=== PATIENT | female | born 1935 | race Caucasian/White ===

== ENCOUNTER → 2016-12-21 | Outpatient (CLI) | payer MEDICARE ==
[~2016-12-21] MED LIST: APRESOLINE10 MG PO; ATENOLOL25 MG; ATENOLOL25 MG PO; BENADRYL ALLERG25 M5 PO; CEFUROXIME AXE250 MG PO; CIPRO500 MG PO; DILTIAZEM 24HR120 MG PO; DULERA100 INH; DUONEB 3 MG/3 ML3 M1 NEB; HYDRALAZINE10 MG PO; LOSARTAN POTASS50 M1 PO; OYSTER SHELL 51 EACH PO; PREDNISONE5 MG PO; PRILOSEC40 M1 PO; PULMICORT RESP0.5 M1 INH; SERTRALINE HYDR25 MG PO; Synthroid,Lev125 MCG PO; TYLENOL 8 HOUR650 MG PO; VITAMIN B COMPL; XANAX0.25 MG PO
[2016-12-21 08:44] LABS: BASO # 0.1 10*3/uL (0.0-0.1); BASO % 1.1 % (0.0-1.0); EOS # 0.6 10*3/uL (0.0-0.4); EOS % 7.3 % (1.0-4.0); HEMATOCRIT 42.2 % (37.0-47.0); HEMOGLOBIN 13.4 g/dl (12.0-16.0); LYMPH # 1.8 10*3/uL (1.3-4.4); LYMPH % 21.9 % (27.0-41.0); MEAN CELL VOLUME 95.9 fl (81.0-99.0); MEAN CORPUSCULAR HGB 30.5 pg (27.0-31.0); MEAN CORPUSCULAR HGB CONC 31.8 g/dl (33.0-37.0); MEAN PLATELET VOLUME 9.9 fl (9.6-12.3); MONO # 0.8 10*3/uL (0.1-1.0); MONO % 9.6 % (3.0-9.0); NEUT # 4.9 10*3/uL (2.3-7.9); NEUT % 59.6 % (47.0-73.0); PLATELET COUNT AUTOMATED 241 10*3/uL (130-400); RED CELL DISTRI WIDTH 14.2 % (0-14.5); WHITE BLOOD COUNT 8.2 10*3/uL (4.8-10.8)
[2016-12-21 09:15] LABS: ALBUMIN 3.2 gm/dl (3.1-4.5); BILIRUBIN, TOTAL 0.4 mg/dl (0.2-1.0); FREE T4 1.67 ng/dl (0.76-1.46); POTASSIUM 4.6 mmol/L (3.5-5.1); TOTAL PROTEIN 7.8 gm/dL (6.4-8.2)
[2016-12-21 09:21] LABS: THYROID STIM HORMONE (HS) 0.016 uIU/ml (0.358-4.75)
[2016-12-21 10:28] LABS: VITAMIN D, 25-HYDROXY 28.4 ng/mL (30-100)
[2016-12-21 10:29] LABS: FOLIC ACID 22.78 ng/mL (>5.38)
== END | disposition home or self-care (01) ==
LOC: LAB 08:19
PROVIDERS: Internal Medicine
DX: Z13.21 Encounter for screening for nutritional disorder (principal); Z13.1 Encounter for screening for diabetes mellitus; Z13.220 Encounter for screening for lipoid disorders; R53.81 Other malaise; E55.9 Vitamin D deficiency, unspecified; Z79.899 Other long term (current) drug therapy

== ENCOUNTER → 2017-02-22 | Outpatient (CLI) | payer MEDICARE ==
[2017-02-22 11:06] LABS: BASO # 0.1 10*3/uL (0.0-0.1); EOS # 0.5 10*3/uL (0.0-0.4); EOS % 6.8 % (1.0-4.0); HEMATOCRIT 42.1 % (37.0-47.0); HEMOGLOBIN 13.3 g/dl (12.0-16.0); LYMPH # 1.6 10*3/uL (1.3-4.4); LYMPH % 20.3 % (27.0-41.0); MEAN CELL VOLUME 96.6 fl (81.0-99.0); MEAN CORPUSCULAR HGB 30.5 pg (27.0-31.0); MEAN CORPUSCULAR HGB CONC 31.6 g/dl (33.0-37.0); MEAN PLATELET VOLUME 10.7 fl (9.6-12.3); MONO # 0.8 10*3/uL (0.1-1.0); NEUT # 4.9 10*3/uL (2.3-7.9); NEUT % 61.3 % (47.0-73.0); PLATELET COUNT AUTOMATED 225 10*3/uL (130-400); RED BLOOD COUNT 4.36 10*6/uL (4.10-5.10)
[2017-02-22 11:38] LABS: ALBUMIN 3.3 gm/dl (3.1-4.5); CREATININE 1.87 mg/dL (0.55-1.02); POTASSIUM 5.4 mmol/L (3.5-5.1); THYROXINE (T4) TOTAL 14.3 ug/dl (4.8-13.9); TOTAL PROTEIN 8.1 gm/dL (6.4-8.2)
[2017-02-22 11:43] LABS: THYROID STIM HORMONE (HS) 0.016 uIU/ml (0.358-4.75)
== END | disposition home or self-care (01) ==
LOC: LAB 10:07
PROVIDERS: Internal Medicine
DX: I10 Essential (primary) hypertension (principal)

== ENCOUNTER → 2017-03-04 | Outpatient (CLI) | payer MEDICARE | END | disposition home or self-care (01) | LOC: MAMMO 10:20 | DX: Z12.31 Encounter for screening mammogram for malignant neoplasm of breast (principal); R42 Dizziness and giddiness; R06.02 Shortness of breath; I65.23 Occlusion and stenosis of bilateral carotid arteries; I08.1 Rheumatic disorders of both mitral and tricuspid valves; I27.2 Other secondary pulmonary hypertension ==

== ENCOUNTER → 2017-04-26 | Outpatient (CLI) | payer MEDICARE | END | disposition home or self-care (01) | LOC: RAD 11:05 | DX: J84.10 Pulmonary fibrosis, unspecified (principal); K44.9 Diaphragmatic hernia without obstruction or gangrene; J45.909 Unspecified asthma, uncomplicated ==

== ENCOUNTER 2017-09-09 11:47 | Inpatient (IN) | payer MEDICARE ==
[~2017-09-09] VITALS: Ht 162.5 cm; Wt 85.5 kg
--- NOTE | ~2017-09-09 | WRIGHTHP ---
[place], [place] PATIENT HISTORY AND PHYSICAL EXAM NAME: ERASMO ALBA [facility] #: [id number] UNIT #: [id number] ROOM: 516 DOCTOR: ECHO ENCINAS MD BIRTHDATE: [birth year] DOS: 09/09/2017 IDENTIFICATION: This is very well known to us. She came into the office with complaints of severe neck pain. Pain was not under control with conventional pain medications and she seemed to have a hard time walking. She was quite tearful and upset. She complains also of headaches in the occipital area. She denies having any nausea, any emesis, any dizziness or lightheadedness. PAST MEDICAL HISTORY: Significant for: 1. Pulmonary fibrosis. 2. Benign hypertension. 3. Generalized anxiety disorder. 4. Hypothyroidism. MEDICATIONS: She is on Tylenol 650 q. 6 hours, Xanax 0.25 at bedtime, atenolol 25 daily, levothyroxine 100 mcg daily, Benadryl 25 daily p.r.n. SOCIAL HISTORY: Nonsmoker, does not use any alcohol. PHYSICAL EXAMINATION: GENERAL: She is awake and alert and oriented. VITAL SIGNS: Blood pressure is 186/82, pulse of 70, respirations 20, temperature 98.5. She is very tearful. NECK: Supple. Some minimal tenderness in the occipital area. NEUROLOGIC Upper arm strength is fairly within normal limits. Staffing Mgr strength is slightly on the low side. Gait seems to be slightly wide based and at times ataxic. LUNGS: Diminished breath sounds, a few rales at the bases. HEART: Regular. ABDOMEN: Obese, soft. EXTREMITIES: Without any edema. ASSESSMENT AND PLAN: 1. The patient with intractable neck pain as well as difficulty ambulating. The patient is placed on the floor. MRI of the brain as well as MRI of the cervical spine has been ordered. The patient may have cervical disk disease with radiculopathy, so she is placed on IV steroids, Toradol for pain control as well as Dilaudid for extreme pain. Discussed with the patient's family in detail. 2. Benign hypertension. Blood pressure is on the high side right now, most likely from pain. We will restart the home medications. 3. Chronic pulmonary fibrosis. A chest x-ray is ordered. She does not have any evidence of exacerbation. [place], [place] PATIENT HISTORY AND PHYSICAL EXAM NAME: ERASMO ALBA UNIT #: [id number] ROOM: 516 DOCTOR: ECHO ENCINAS MD BIRTHDATE: [birth year] ECHO ENCINAS MD CM:HISPHYS:PATIENT HISTORY AND PHYSICAL EXAMINATION [id number] ECHO ENCINAS MD 09/09/17 1613 interface
--- NOTE | ~2017-09-09 | PR ---
[place], [place] PROGRESS NOTE NAME: ERASMO ALBA [facility] #: [id number] UNIT #: [id number] ROOM: 516 DOCTOR: ECHO ENCINAS MD BIRTHDATE: [birth year] DOS: 09/11/2017 SUBJECTIVE: The patient is doing fine without any complaint. Denies any chest pains, palpitations. Her neck pain is much improved. She is walking to the bathroom and without any major problems. OBJECTIVE: VITAL SIGNS: Graphic trend shows pressure 140/57, pulse of 60, respirations 20, temperature 97.9. LUNGS: Clear. HEART: Regular. ABDOMEN: Soft. EXTREMITIES: Without any edema. Gait was normal this morning, not the shuffling wide-based gait that she had previously. MRI of the cervical spine shows C6-C7 osteophyte with mild spinal stenosis, C5 and C6 with moderate spinal stenosis, C4-C5 with mild spinal stenosis and C3-C4 with left disk protrusion and foraminal encroachment. ASSESSMENT AND PLAN: Cervical spinal stenosis with radiculopathy. The patient is on IV steroids and improving. Her pain is under control. The plan is to discharge her to home today and on nonsteroidals, gabapentin and a tapering dose of prednisone along with a few tablets of [place] just in case if her pain gets worse. She will require a neurosurgical evaluation as an outpatient. ECHO ENCINAS MD CM:PNTRANS [phone] ECHO ENCINAS MD 09/11/17 0949 interface
--- NOTE | ~2017-09-09 | PR ---
[place], [place] PROGRESS NOTE NAME: ERASMO ALBA UNIT #: [id number] ROOM: 516 DOCTOR: SIMRAN DAVISON MD BIRTHDATE: [birth year] DOS: 09/10/2017 SUBJECTIVE: The patient is feeling much better. She has been ambulating back and forth to the restroom and is otherwise asymptomatic. No dizziness. No fainting episodes. OBJECTIVE: VITAL SIGNS: Blood pressure 100/50, heart rate of 57 beats per minute, breathing normally, afebrile. GENERAL APPEARANCE: The patient is alert and oriented x 3, in no visible distress. HEENT AND NECK: Exam within normal limits. CARDIOVASCULAR SYSTEM: Heart rate is regular in rate and rhythm. S1 and S2 normally audible. LUNGS: Clear to auscultation. ABDOMEN: Soft, nontender. No obvious organomegaly. Bowel sounds are present. EXTREMITIES: Without significant cyanosis or edema. IMPRESSION: 1. The patient with some ambulatory dysfunction at home and severe neck pain. The patient was having difficulty with walking, which has now improved. The patient was admitted by Dr. Alanna Waddell for ambulatory dysfunction and inability to ambulate. The patient is working with Physical Therapy. An MRI of the brain was normal. An MRI of the cervical spine showed mild to moderate spinal stenosis, but nothing critical. The plan is to continue to get her to work with Physical Therapy and if she is better, she can be discharged to home tomorrow by Dr. Waddell. 2. Chronic pulmonary fibrosis. No recent increase in shortness of breath. 3. Benign essential hypertension. The patient's blood pressures were staying elevated yesterday and she was given 1 dose of 0.1 mg of clonidine and her blood pressures have normalized. 4. Generalized anxiety disorder, treated and controlled with Xanax. 5. Hypothyroidism, treated with levothyroxine. 6. Severe neck pain, better with treatment. [place], [place] PROGRESS NOTE NAME: ERASMO ALBA UNIT #: [id number] ROOM: 516 DOCTOR: SIMRAN DAVISON MD BIRTHDATE: [birth year] SIMRAN DAVISON MD CM:PNTRANS [id number] [id number] SIMRAN DAVISON MD 09/10/171920 interface
--- NOTE | ~2017-09-09 | DS ---
[place], [place] DISCHARGE SUMMARY NAME: ERASMO ALBA ACC #: [id number] UNIT #: [id number] ROOM: 516 DOCTOR: CE DENNISECHO BIRTHDATE: [birth year] DOS: 09/11/2017 DIAGNOSES: 1. Cervical spinal stenosis with radiculopathy. 2. Elevated blood pressure, possibly from pain. 3. Benign hypertension. 4. Hypothyroidism. 5. Pulmonary fibrosis. 6. Generalized anxiety disorder. DISCHARGE MEDICATIONS: The patient's medications were on discharge will be gabapentin 100 mg at bedtime, clonidine 0.1 daily p.r.n. for blood pressure systolic above 170 and diastolic above 90, meloxicam 7.5 daily, prednisone 5 b.i.d. for 10 days, levothyroxine 100 mcg daily, Tylenol 650 q. 6 p.r.n., Xanax 0.25 at bedtime p.r.n., atenolol 25 daily, Benadryl 25 daily p.r.n. HOSPITAL COURSE: The patient is 82 years old, comes into the office with complaints of severe pain. She is quite tearful and was difficult to ambulate. Please refer to H and P for details. After admission, had an MRI of the cervical spine and brain. Cervical spine MRI showed cervical spinal stenosis with most likely radiculopathy resulting in her inability to walk. The patient was placed on steroids, pain medications and Toradol. The patient's pain is much improved. She is ambulating and is not having any new problems, so the plan is to discharge her to home. She may require a neurosurgical evaluation as an outpatient. Right now, we will try these meds and see whether she will continue to improve. PT/OT will also be consulted upon discharge, which she can receive at the local [facility]. She did have elevated blood pressure the first day she was here. This could have been from the extreme pain she was in. Clonidine was given, so this will be continued at home on a p.r.n. basis. She does have underlying pulmonary fibrosis, but she did not have any exacerbation and the chest x-ray did not show any new pathology. [place], [place] DISCHARGE SUMMARY NAME: ERASMO ALBA ACC #: [id number] UNIT #: [id number] ROOM: 516 DOCTOR: ECHO ENCINAS MD BIRTHDATE: [birth year] ECHO ENCINAS MD CM:JR [phone] ECHO ENCINAS MD 09/11/17 09 interface
[~2017-09-09 11:47] MED LIST changes: +PRILOSEC20 M1 PO; -PRILOSEC40 M1 PO; +Synthroid,Lev100 MCG PO; -Synthroid,Lev125 MCG PO; -TYLENOL 8 HOUR650 MG PO; +TYLENOL325 M2 PO
[2017-09-09 12:00] VITALS: BP 186/82
[2017-09-09 12:10] VITALS: BP 186/82
[2017-09-09 12:19] LABS: BASO # 0.1 10*3/uL (0.0-0.1); BASO % 0.8 % (0.0-1.0); EOS # 0.5 10*3/uL (0.0-0.4); EOS % 4.9 % (1.0-4.0); HEMATOCRIT 40.9 % (37.0-47.0); HEMOGLOBIN 12.8 g/dl (12.0-16.0); LYMPH % 20.1 % (27.0-41.0); MEAN CORPUSCULAR HGB CONC 31.3 g/dl (33.0-37.0); MEAN PLATELET VOLUME 10.5 fl (9.6-12.3); MONO # 1.1 10*3/uL (0.1-1.0); NEUT # 6.2 10*3/uL (2.3-7.9); NEUT % 62.9 % (47.0-73.0); PLATELET COUNT AUTOMATED 223 10*3/uL (130-400); RED BLOOD COUNT 4.26 10*6/uL (4.10-5.10); RED CELL DISTRI WIDTH 14.6 % (0-14.5); WHITE BLOOD COUNT 9.9 10*3/uL (4.8-10.8)
[2017-09-09 12:32] LABS: CREATININE 1.25 mg/dL (0.55-1.02); POTASSIUM 4.2 mmol/L (3.5-5.1)
[2017-09-09] MEDS ORDERED: COZAAR50 M1 PO (12:50)
[2017-09-09 16:00] VITALS: BP 183/85
[2017-09-09 20:00] VITALS: BP 114/55
[2017-09-10] VITALS: BP 149/61
[2017-09-10 08:00] VITALS: BP 142/67
[2017-09-10 12:00] VITALS: BP 100/50
[2017-09-10 16:00] VITALS: BP 128/61
[2017-09-11] VITALS: BP 140/57
[2017-09-11] MEDS ORDERED: 'CLONIDINE0.1 MG PO (07:42)
[2017-09-11] MEDS ORDERED: MOBIC7.5 MG PO (07:42)
[2017-09-11] MEDS ORDERED: PREDNISONE5 MG PO (07:57)
[2017-09-11 08:00] VITALS: BP 157/61
== END 2017-09-11 10:25 | disposition home or self-care (01) | DRG 74 ==
LOC: 5E 11:47
PROVIDERS: Internal Medicine
DX: M54.12 Radiculopathy, cervical region (principal); J84.10 Pulmonary fibrosis, unspecified; M48.02 Spinal stenosis, cervical region; R26.2 Difficulty in walking, not elsewhere classified; F41.1 Generalized anxiety disorder; I10 Essential (primary) hypertension; E03.9 Hypothyroidism, unspecified; E66.9 Obesity, unspecified; Z68.32 Body mass index [BMI] 32.0-32.9, adult; Z79.899 Other long term (current) drug therapy

== ENCOUNTER → 2017-11-17 | Outpatient (CLI) | payer MEDICARE ==
[~2017-11-17] MED LIST changes: +'CLONIDINE0.1 MG PO; +COZAAR50 M1 PO; +MOBIC7.5 MG PO
== END | disposition home or self-care (01) ==
LOC: US 11:29
DX: R60.0 Localized edema (principal)

== ENCOUNTER → 2018-11-23 | Outpatient (CLI) | payer MEDICARE ==
[~2018-11-23] MED LIST changes: +DICLOFENAC SOD100 G1 T; +DOXYCYCLINE100 M3 PO; +HYDROCODONE-AC1 EAC2 PO; +Ipratropium Brom3 ML INH; +PANTOPRAZOLE SO40 MG PO; -XANAX0.25 MG PO; +XANAX0.5 MG PO
== END | disposition home or self-care (01) ==
LOC: US 13:55
DX: R60.0 Localized edema (principal)

== ENCOUNTER 2019-06-21 18:35 | Inpatient (IN) | payer MEDICARE ==
[~2019-06-21] VITALS: Ht 162.6 cm; Wt 82.7 kg
[2019-06-21 18:42] VITALS: BP 86/51
--- NOTE | 2019-06-21 19:05 | NUR ---
PT O2 SAT 84% ON 2L O2 VIA NC.PT REPORTS SHE USES 4 LITERS WITH EXERSION.PT PLACED ON 4L AND O2 SAT INCREASED TO 95%.PT MEDICATED PER EMAR.FAMILY AT BEDSIDE.BLANKETS PROVIDED DUE TO PT STATING SHE IS COLD.
[2019-06-21] MEDS ORDERED: VITAMIN D31000 UNI1 PO (19:08)
[2019-06-21] MEDS ORDERED: STOOL SOFTENER100 M3 PO (19:09)
[2019-06-21] MEDS ORDERED: ESBRIET267 MG PO (19:10)
[2019-06-21 19:39] VITALS: BP 154/66
--- NOTE | 2019-06-21 19:42 | NUR ---
PT REPORTS NAUSEA HAS RESOLVED AFTER MEDICATION OF ZOFRAN.PT PROVIDED ICE CHIPS.VITALS REASSESSED.SUPPORT PERSON REMAINS AT BEDSIDE.CALL VALLE IS WITHIN REACH.
--- NOTE | 2019-06-21 19:50 | NUR ---
PT MEDICATED PER EMAR WITH 975MG TYLENOL PO FOR TYMPANIC TEMP 100.4.
[2019-06-21 19:55] LABS: BASO # 0.1 10*3/uL (0.0-0.1); BASO % 0.5 % (0.0-1.0); EOS # 0.1 10*3/uL (0.0-0.4); EOS % 0.6 % (1.0-4.0); HEMATOCRIT 33.9 % (37.0-47.0); HEMOGLOBIN 10.7 g/dl (12.0-16.0); LYMPH # 0.9 10*3/uL (1.3-4.4); LYMPH % 6.7 % (27.0-41.0); MEAN CELL VOLUME 96.9 fl (81.0-99.0); MEAN CORPUSCULAR HGB 30.6 pg (27.0-31.0); MEAN CORPUSCULAR HGB CONC 31.6 g/dl (33.0-37.0); MEAN PLATELET VOLUME 10.9 fl (9.6-12.3); MONO # 1.2 10*3/uL (0.1-1.0); MONO % 8.8 % (3.0-9.0); NEUT # 10.8 10*3/uL (2.3-7.9); NEUT % 82.9 % (47.0-73.0); PLATELET COUNT AUTOMATED 190 10*3/uL (130-400); RED CELL DISTRI WIDTH 15.9 % (0-14.5)
--- NOTE | 2019-06-21 20:01 | NUR ---
PT PROVIDED BEDSIDE TOILET AND PROMPTED FOR URINE SPECIMEN.CALL VALLE IS WITHIN REACH.
--- NOTE | 2019-06-21 20:08 | NUR ---
URINE SPECIMENT COLLECTED,LABELED AT BEDSIDE AND SENT TO LAB.PT ASSISTED BACK INTO BED.CALL VALLE IS WITHIN REACH.PT WATCHING TV AT THIS TIME.
[2019-06-21 20:11] LABS: ALKALINE PHOSPHATASE 59 U/L (45-117); BUN 25 mg/dl (7-24); CHLORIDE 108 mmol/L (98-107); CREATININE 1.32 mg/dL (0.55-1.02); LIPASE 115 U/L (73-393); POTASSIUM 4.4 mmol/L (3.5-5.1); SGOT/AST 15 IU/L (3-35); SGPT/ALT 11 U/L (12-78); SODIUM 140 mmol/L (136-145)
[2019-06-21 20:15] LABS: ACT PARTIAL THROMBO TIME 30.2 SECONDS (20.0-32.1); INTERNATIONAL NORM RATIO 1.1 (2.0-3.5)
[2019-06-21 20:20] LABS: BILIRUBIN NEGATIVE (NEGATIVE); BLOOD NEGATIVE (NEGATIVE); CLARITY SL CLOUDY (CLEAR); COLOR YELLOW (YELLOW); GLUCOSE NEGATIVE (NEGATIVE); KETONE NEGATIVE (NEGATIVE); LEUKO ESTERASE TRACE (NEGATIVE); NITRITE POSITIVE (NEGATIVE); PH 5.5 (5.0-9.0); SPECIFIC GRAVITY 1.025 (1.005-1.030); UROBILINOGEN 0.2 E.U./dl (0.2-1.0)
[2019-06-21 20:20] LABS: TROPONIN I < 0.015 ng/ml (<0.045)
[2019-06-21 20:22] VITALS: BP 150/64
--- NOTE | 2019-06-21 20:22 | NUR ---
PT O2 SAT 95% ON 3L NC.
[2019-06-21 20:31] LABS: BACTERIA 4+; MUCOUS 2+; WBC 16-20 wbc/hpf (0-5)
[2019-06-21 20:32] LABS: RBC 0-2 rbc/hpf (0-2)
--- NOTE | 2019-06-21 20:52 | NUR ---
PER SENIOR SUSTAINABILITY CONSULTANT KASHMIR AND PT FAMILY MEMBER AKILA RICHIE, PT DID TAKE TAMIFLU TODAY.ORDER FOR TAMIFLU DISCONTINUED.INFUSION OF LEVAQUIN INITIATED.PT TO CT VIA STRETCHER AT THIS TIME.
--- NOTE | 2019-06-21 21:02 | NUR ---
PT NURSE CALLED AND ADVISED PT IS IN CT AT THIS TIME AND WILL BE BROUGHT TO UNIT UPON HER RETURN.FAMILY UPDATED ON PT PLAN OF CARE.
--- NOTE | 2019-06-21 21:03 | NUR ---
PER [facility] VERBAL ORDER PT CAN TAKE HER EVENING DOSE OF ESBRIET FROM HER HOME MEDICATIONS THAT PT HAS WITH HER.
--- NOTE | 2019-06-21 21:06 | NUR ---
PT HAS CALLUS ON BOTTOM OF RIGHT FOOT AND LEFT FOOT.NO PHOTO TAKEN.
--- NOTE | 2019-06-21 21:07 | NUR ---
PT RETURNED FROM CT VIA STRETCHER.
--- NOTE | 2019-06-21 21:08 | NUR ---
PT PROVIDED VANESSA CRACKERS AND APPLESAUCE ALONG WITH DRINK OF WATER.
--- NOTE | 2019-06-21 21:16 | NUR ---
PT TO UNIT AT THIS TIME.
--- NOTE | 2019-06-21 21:17 | NUR ---
PT TOOK HER EVENING DOSE OF 3 TABLETS OF ESBRIET.
[2019-06-21 21:20] VITALS: BP 134/61
--- NOTE | 2019-06-21 21:20 | NUR ---
Time: 2119 A 84 year old F admitted to under services of DR. LANEY DENNIS,SIMRAN Andrade Pt. arrived via stretcher from ER. Chief complaint: SENT TO ER BY PCP FOR POSSIBLE FLU. GUICHO HOWELL
--- NOTE | 2019-06-21 23:30 | NUR ---
ASSISTED TO BATHROOM. PT. SLOW BUT STEADY. BED ALARM PUT ON BED FOR PT'S SAFETY; EXPLAINED TO PATIENT NEED FOR BED ALARM AT NIGHT. PT. VERBALIZES UNDERSTANDING. CALL LIGHT WITHIN REACH.
[2019-06-22] VITALS: BP 165/69
--- NOTE | 2019-06-22 01:09 | NUR ---
MEDICATED WITH XANAX FOR ANXIETY. PT. REASSURED AT THIS TIME DUE TO BEING CONCERNED ABOUT HAVING PNEUMONIA. 02 REMAINS INTACT. CALL LIGHT WITHIN REACH. BED IN LOW LOCKED POSITION.
--- NOTE | 2019-06-22 03:30 | NUR ---
RESTING IN BED WITH EYES CLOSED; XANAX GIVEN EARLIER APPARENTLY EFFECTIVE.
--- NOTE | 2019-06-22 06:15 | NUR ---
ASSISTED UP TO BATHROOM BY PA & BACK TO BED BY THIS R.N. TOOK PO MEDICATIONS WITHOUT DIFFICULTY; CALL LIGHT WITHIN REACH. WANTS TO WAIT TO TAKE ESBRIET CLOSER TO BREAKFAST. VOICES NO OTHER C/O AT THIS TIME. BED ALARM ON.
[2019-06-22 08:00] VITALS: BP 142/68
--- NOTE | 2019-06-22 08:40 | NUR ---
DR FRANCIS IN TO SEE PT
[2019-06-22] MEDS ORDERED: LEVOTHYROXINE150 MCG PO (09:00)
--- NOTE | 2019-06-22 09:00 | NUR ---
Inspector Soldering in to talk to patient. Patient states lives at home with her . There are basement steps and 1 other step in the home. Physician: Dr. Alanna Waddell Pharmacy: [facility] Home health services: none Patient's level of ADLs: INDEPENDENT Patient has working utilities: yes DME: O2 @ 2L nc sitting, O2 @ 3-4L for activity, portable O2 tanks, nebulizer, O2 supplier [facility] Follow-up physician's appointment after d/c: she prefers to make her own follow up appt after discharge Does patient want to access PORTAL?: no Discharge plan discussed with patient. She lives at home with her . She is independent in her ADLs and ambulation. Discussed home health care services and she denies any home needs at this time. When medically stable she will be discharged to home. She states either Raquel or her son will provide transportation on discharge as her is not driving again yet. CT showed pneumonia, on Levaquin. UC/BC pending. +UA. GISEL RUSH
--- NOTE | 2019-06-22 09:08 | NUR ---
MED REC UPDATED WITH LIST FROM [facility] AND PATIENT. DR DAVISON IN TO SEE PT AND NOTIFIED OF UPDATED MED REC.
--- NOTE | 2019-06-22 10:02 | NUR ---
DR BURGESS'S OFFICE NOTIFIED OF CONSULT.
[2019-06-22 12:00] VITALS: BP 141/61
[2019-06-22 16:00] VITALS: BP 130/64
[2019-06-22 20:00] VITALS: BP 134/47
--- NOTE | 2019-06-22 20:30 | NUR ---
RESTING IN BED. NO ACUTE DISTRESS NOTED. RESPIRATIONS EASY. LUNGS DIMINISHED, CLEAR. PULSE OX 98% 2.5L. COUGH, OCCASIONALLY PRODUCTIVE. +1 BLE EDEMA. CALL LIGHT WITHIN REACH. NO VOICED COMPLAINTS
--- NOTE | 2019-06-22 21:30 | NUR ---
24 HR chart check completed.
--- NOTE | 2019-06-22 21:51 | NUR ---
MEDICATED WITH XANAX PER PRN ORDER TO ASSIST WITH ANXIETY. WILL MONITOR
--- NOTE | 2019-06-22 23:00 | NUR ---
MEDS EFFECTIVE. SLEEPING. O2 IN USE. CALL LIGHT WITHIN REAC
[2019-06-23] VITALS: BP 119/45
--- NOTE | 2019-06-23 00:30 | NUR ---
SLEEPING. NO DISTRESS NOTED. RESPIRATIONS EASY. VSS. PULSE OX 96% 2.5L. CALL LIGHT WITHIN REACH.
--- NOTE | 2019-06-23 06:00 | NUR ---
SLEPT THROUGHOUT NIGHT WITH NO DISTRESS NOTED. RESPIRATIONS EASY. CALL LIGHT WITHIN REACH. NO VOICED COMPLAINTS THIS SHIFT
[2019-06-23 06:37] LABS: BASO % 0.4 % (0.0-1.0); EOS # 0.6 10*3/uL (0.0-0.4); EOS % 5.8 % (1.0-4.0); HEMATOCRIT 32.2 % (37.0-47.0); LYMPH # 1.5 10*3/uL (1.3-4.4); MEAN CELL VOLUME 97.9 fl (81.0-99.0); MEAN CORPUSCULAR HGB 30.4 pg (27.0-31.0); MEAN CORPUSCULAR HGB CONC 31.1 g/dl (33.0-37.0); MEAN PLATELET VOLUME 10.8 fl (9.6-12.3); MONO # 1.2 10*3/uL (0.1-1.0); MONO % 11.4 % (3.0-9.0); NEUT # 6.8 10*3/uL (2.3-7.9); PLATELET COUNT AUTOMATED 192 10*3/uL (130-400); RED BLOOD COUNT 3.29 10*6/uL (4.10-5.10); RED CELL DISTRI WIDTH 15.9 % (0-14.5); WHITE BLOOD COUNT 10.2 10*3/uL (4.8-10.8)
[2019-06-23 06:53] LABS: ALBUMIN 2.6 gm/dl (3.1-4.5); CREATININE 1.2 mg/dL (0.55-1.02); POTASSIUM 4.5 mmol/L (3.5-5.1); TOTAL PROTEIN 6.6 gm/dL (6.4-8.2)
[2019-06-23] MEDS ORDERED: ATENOLOL25 MG PO (08:17)
[2019-06-23] MEDS ORDERED: Ipratropium Brom3 ML INH (08:17)
[2019-06-23] MEDS ORDERED: DICLOFENAC SOD100 G1 T (08:17)
[2019-06-23] MEDS ORDERED: Synthroid,Lev100 MCG PO (08:17)
[2019-06-23] MEDS ORDERED: LEVOTHYROXINE150 MCG PO (08:17)
[2019-06-23] MEDS ORDERED: 'CLONIDINE0.1 MG PO (08:17)
[2019-06-23] MEDS ORDERED: PANTOPRAZOLE SO40 MG PO (08:17)
[2019-06-23] MEDS ORDERED: ESBRIET267 MG PO (08:17)
[2019-06-23] MEDS ORDERED: STOOL SOFTENER100 M3 PO (08:17)
--- NOTE | 2019-06-23 09:00 | NUR ---
Weblogic Developer in to see patient. No new needs or request at this time. She denies any home needs. When medically stable she will be discharged ot home. ERIC+ GNB. Respiratory viral profile pending. On Tamiflu.
[2019-06-23 12:00] VITALS: BP 142/56
[2019-06-23 16:00] VITALS: BP 146/67
[2019-06-23 20:00] VITALS: BP 152/62
--- NOTE | 2019-06-23 22:23 | NUR ---
XANAX GIVEN PER ORDER FOR ANXIETY/INSOMNIA PER PT. IT HELPS HER SLEEP.
[2019-06-24] VITALS: BP 141/51
--- NOTE | 2019-06-24 | NUR ---
XAMONETX EFFECTIVE. PT. SLEEPING.
--- NOTE | 2019-06-24 04:11 | NUR ---
24 HR chart check completed.
[2019-06-24 08:00] VITALS: BP 142/62
[2019-06-24 08:33] LABS: BASO # 0.1 10*3/uL (0.0-0.1); BASO % 0.5 % (0.0-1.0); EOS # 0.7 10*3/uL (0.0-0.4); EOS % 7.1 % (1.0-4.0); HEMOGLOBIN 10.1 g/dl (12.0-16.0); LYMPH # 1.8 10*3/uL (1.3-4.4); LYMPH % 19.2 % (27.0-41.0); MEAN CELL VOLUME 96.2 fl (81.0-99.0); MEAN CORPUSCULAR HGB 29.4 pg (27.0-31.0); MEAN CORPUSCULAR HGB CONC 30.6 g/dl (33.0-37.0); MEAN PLATELET VOLUME 10.3 fl (9.6-12.3); MONO % 10.7 % (3.0-9.0); NEUT # 5.9 10*3/uL (2.3-7.9); NEUT % 62.1 % (47.0-73.0); PLATELET COUNT AUTOMATED 211 10*3/uL (130-400); RED BLOOD COUNT 3.43 10*6/uL (4.10-5.10); RED CELL DISTRI WIDTH 15.5 % (0-14.5); WHITE BLOOD COUNT 9.4 10*3/uL (4.8-10.8)
--- NOTE | 2019-06-24 08:37 | NUR ---
PT SITTING UP EATING BREAKFAST. NO DISTRESS NOTED. WILL MONITOR
[2019-06-24 08:45] LABS: ALBUMIN 2.6 gm/dl (3.1-4.5); CREATININE 1.31 mg/dL (0.55-1.02); POTASSIUM 4.3 mmol/L (3.5-5.1); TOTAL PROTEIN 6.8 gm/dL (6.4-8.2)
[2019-06-24 12:00] VITALS: BP 142/69
--- NOTE | 2019-06-24 13:32 | NUR ---
PT MEDICTED WITH TYLENOL FOR C/O NECK PAIN WILL MONITOR
--- NOTE | 2019-06-24 14:00 | NUR ---
PHYSICAL THERAPY PT EVAL COMPLETED ON LEVEL 4: FULL EVAL TO FOLLOW. RECOMMEND PT WHILE HERE TO ADDRESS DECREASED FUNCTIONAL MOBILITY. PT EVAL IS MODERATE COMPLEXITY: [id number]. D/C RECOMMENDATIONS ARE HOME WITH AND FAMILY SUPPORT. NO SNF RECOMMENDED OR NEEDED AT THIS TIME. REQUESTS NO HOME HEALTH SERVICES DAUGHTER IS A NURSE AND SHE DOES NOT FEEL SHE NEEDS. WAS ABLE TO COMPLETE TRANSFER FROM CHAIR WITH SBA/CGA AND GAIT 75 FT X 2 WITH CGA/SBA OF 1 USING FWW WITH GOOD SAFETY AND NO ISSUES WITH TURNING BUT DID HAVE COMPLAINTS OF NECK PAIN THROUGHOUT SESSION. THANK YOU FOR REFERRAL SHANNON TERRY PT
--- NOTE | 2019-06-24 14:13 | NUR ---
PT. REFUSED AEROSOL TREATMENT AT THIS TIME.
[2019-06-24] MEDS ORDERED: LEVAQUIN750 M1 PO (15:25)
[2019-06-24 16:00] VITALS: BP 132/55
--- NOTE | 2019-06-24 16:01 | NUR ---
Discharge instructions reviewed with patient/family. Patient receptive and verbalizes understanding. Follow-up care arranged. Written instructions given to patient/family. JOSE ALEJANDRO STEWARD
--- NOTE | 2019-06-24 16:01 | NUR ---
SPOKE WITH DR FRANCIS , HE STATES OK TO DC PT. DR OGDEN NOTIFIED
[2019-06-25 23:03] LABS: ADENOVIRUS Negative (Negative); INFLUENZA A Negative (Negative); INFLUENZA B Negative (Negative); METAPNEUMOVIRUS Negative (Negative); PARAINFLUENZA 1 Negative (Negative); PARAINFLUENZA 2 Negative (Negative); PARAINFLUENZA 3 Negative (Negative); RHINOVIRUS Negative (Negative); RSV A Negative (Negative); RSV B Negative (Negative)
== END 2019-06-24 16:01 | disposition home or self-care (01) | DRG 193 ==
LOC: ED 18:35 → EDHOLD 20:46 → 4E 20:46
PROVIDERS: Internal Medicine; Internal Medicine Critical Care Medicine; Nurse Practitioner Family; ADMIT Internal Medicine
DX: J18.9 Pneumonia, unspecified organism (principal); N17.0 Acute kidney failure with tubular necrosis; J96.20 Acute and chronic respiratory failure, unspecified whether with hypoxia or hypercapnia; N30.00 Acute cystitis without hematuria; E44.1 Mild protein-calorie malnutrition; J44.0 Chronic obstructive pulmonary disease with (acute) lower respiratory infection; J84.10 Pulmonary fibrosis, unspecified; B96.1 Klebsiella pneumoniae [K. pneumoniae] as the cause of diseases classified elsewhere; R62.7 Adult failure to thrive; F41.1 Generalized anxiety disorder; K21.0 Gastro-esophageal reflux disease with esophagitis; E03.9 Hypothyroidism, unspecified; J44.9 Chronic obstructive pulmonary disease, unspecified; I10 Essential (primary) hypertension; Z68.31 Body mass index [BMI] 31.0-31.9, adult; Z99.81 Dependence on supplemental oxygen; Z88.0 Allergy status to penicillin; Z87.891 Personal history of nicotine dependence; Z90.710 Acquired absence of both cervix and uterus; Z82.49 Family history of ischemic heart disease and other diseases of the circulatory system

== ENCOUNTER → 2019-11-08 | Outpatient (CLI) | payer MEDICARE ==
[~2019-11-08] MED LIST changes: +ESBRIET267 MG PO; +LEVAQUIN750 M1 PO; +LEVOTHYROXINE150 MCG PO; +STOOL SOFTENER100 M3 PO; +VITAMIN D31000 UNI1 PO
[2019-11-08 11:17] LABS: BASO # 0.1 10*3/uL (0.0-0.1); BASO % 0.8 % (0.0-1.0); EOS # 0.6 10*3/uL (0.0-0.4); EOS % 6.2 % (1.0-4.0); HEMATOCRIT 38.5 % (37.0-47.0); LYMPH # 1.6 10*3/uL (1.3-4.4); LYMPH % 16.8 % (27.0-41.0); MEAN CELL VOLUME 98.5 fl (81.0-99.0); MEAN CORPUSCULAR HGB 31.2 pg (27.0-31.0); MEAN CORPUSCULAR HGB CONC 31.7 g/dl (33.0-37.0); MEAN PLATELET VOLUME 10.3 fl (9.6-12.3); MONO # 0.7 10*3/uL (0.1-1.0); MONO % 7.3 % (3.0-9.0); NEUT # 6.3 10*3/uL (2.3-7.9); NEUT % 68.5 % (47.0-73.0); PLATELET COUNT AUTOMATED 229 10*3/uL (130-400); RED BLOOD COUNT 3.91 10*6/uL (4.10-5.10); RED CELL DISTRI WIDTH 14.2 % (0-14.5); WHITE BLOOD COUNT 9.2 10*3/uL (4.8-10.8)
[2019-11-08 11:36] LABS: CREATININE 1.32 mg/dL (0.55-1.02); POTASSIUM 4.3 mmol/L (3.5-5.1)
[2019-11-08 14:08] LABS: BILIRUBIN NEGATIVE (NEGATIVE); BLOOD NEGATIVE (NEGATIVE); CLARITY SL CLOUDY (CLEAR); COLOR YELLOW (YELLOW); GLUCOSE NEGATIVE (NEGATIVE); KETONE NEGATIVE (NEGATIVE); LEUKO ESTERASE 1+ (NEGATIVE); NITRITE NEGATIVE (NEGATIVE); PH 6.5 (5.0-9.0); UROBILINOGEN 0.2 E.U./dl (0.2-1.0)
[2019-11-08 14:09] LABS: BACTERIA 1+; WBC 16-20 wbc/hpf (0-5)
== END | disposition home or self-care (01) ==
LOC: LAB 10:43
PROVIDERS: Internal Medicine
DX: R39.198 Other difficulties with micturition (principal)

== ENCOUNTER → 2019-12-06 | Outpatient (CLI) | payer MEDICARE ==
[2019-12-06 15:49] LABS: BACTERIA 1+; BILIRUBIN NEGATIVE (NEGATIVE); BLOOD NEGATIVE (NEGATIVE); CLARITY CLEAR (CLEAR); COLOR YELLOW (YELLOW); EPITHELIAL CELLS 16-20; GLUCOSE NEGATIVE (NEGATIVE); KETONE NEGATIVE (NEGATIVE); LEUKO ESTERASE NEGATIVE (NEGATIVE); NITRITE NEGATIVE (NEGATIVE); UROBILINOGEN 0.2 E.U./dl (0.2-1.0)
== END | disposition home or self-care (01) ==
LOC: LAB 14:21
PROVIDERS: Internal Medicine
DX: R34 Anuria and oliguria (principal)

== ENCOUNTER → 2019-12-18 | Outpatient (CLI) | payer MEDICARE | END | disposition home or self-care (01) | LOC: RAD 12-15 09:00 | DX: K44.9 Diaphragmatic hernia without obstruction or gangrene (principal); K21.9 Gastro-esophageal reflux disease without esophagitis ==

== ENCOUNTER → 2019-12-28 | Outpatient (CLI) | payer MEDICARE | END | disposition home or self-care (01) | LOC: COVID19 03:34 | DX: Z03.818 Encounter for observation for suspected exposure to other biological agents ruled out (principal) ==

== ENCOUNTER 2020-01-17 13:38 | Inpatient (IN) | payer MEDICARE ==
[~2020-01-17] VITALS: Ht 157.4 cm; Wt 78.3 kg
[2020-01-17 13:50] VITALS: BP 156/75
--- NOTE | 2020-01-17 14:45 | NUR ---
POX 60-64% ON 5L NC AT THIS TIME. RESPS ARE LABORED. DAUGHTER STATING SHE WAS JUST UP TO THE BEDSIDE COMMODE. O2 WAS INCREASED TO 6L NC. RESPIRATORY CALLED. SATS ARE SLOWLY INCREASING AT REST. WILL CONTINUE TO MONITOR. PTS NURSE GISELE IS NOW AT THE BEDSIDE.
[2020-01-17 15:05] LABS: BASO # 0.1 10*3/uL (0.0-0.1); BASO % 0.8 % (0.0-1.0); EOS # 0.5 10*3/uL (0.0-0.4); EOS % 5.6 % (1.0-4.0); HEMATOCRIT 56.6 % (37.0-47.0); LYMPH # 1.7 10*3/uL (1.3-4.4); LYMPH % 19.8 % (27.0-41.0); MEAN CELL VOLUME 96.1 fl (81.0-99.0); MEAN CORPUSCULAR HGB 30.4 pg (27.0-31.0); MEAN CORPUSCULAR HGB CONC 31.6 g/dl (33.0-37.0); MEAN PLATELET VOLUME 10.3 fl (9.6-12.3); MONO # 0.6 10*3/uL (0.1-1.0); MONO % 7.1 % (3.0-9.0); NEUT # 5.7 10*3/uL (2.3-7.9); NEUT % 66.5 % (47.0-73.0); PLATELET COUNT AUTOMATED 157 10*3/uL (130-400); RED BLOOD COUNT 5.89 10*6/uL (4.10-5.10); RED CELL DISTRI WIDTH 14.2 % (0-14.5); WHITE BLOOD COUNT 8.5 10*3/uL (4.8-10.8)
[2020-01-17 15:06] LABS: BILIRUBIN NEGATIVE (NEGATIVE); BLOOD NEGATIVE (NEGATIVE); CLARITY CLEAR (CLEAR); COLOR YELLOW (YELLOW); GLUCOSE NEGATIVE (NEGATIVE); KETONE NEGATIVE (NEGATIVE); LEUKO ESTERASE TRACE (NEGATIVE); NITRITE NEGATIVE (NEGATIVE); SPECIFIC GRAVITY 1.015 (1.005-1.030); UROBILINOGEN 0.2 E.U./dl (0.2-1.0)
[2020-01-17 15:08] VITALS: BP 122/83
[2020-01-17 15:13] LABS: BACTERIA 2+; RBC 0-2 rbc/hpf (0-2)
[2020-01-17 15:18] LABS: ALBUMIN 3.7 gm/dl (3.1-4.5); CREATININE 1.51 mg/dL (0.55-1.02); POTASSIUM 4.3 mmol/L (3.5-5.1)
--- NOTE | 2020-01-17 15:48 | NUR ---
PT TOLERATED CT X-RAY WELL PT STATES PAIN AT 7/10 PRIOR TO TRANSPORT TO CT X-RAY PT STATES 5/10 UPON RETURN
[2020-01-17 16:05] VITALS: BP 173/81
[2020-01-17 16:23] VITALS: BP 172/86
[2020-01-17 17:00] VITALS: BP 168/90
--- NOTE | 2020-01-17 17:00 | NUR ---
Time: 1699 A 84 year old FEMALE admitted to 5E under services of ECHO LIU MD. Pt. arrived via bed from ER. Chief complaint: DIZZINESS, HEART RACING, BACK PAIN, SHORTNESS OF BREATH. DENISE MCGEE
[2020-01-17] MEDS ORDERED: REGLAN5 MG PO (17:28)
[2020-01-17] MEDS ORDERED: 'XANAX0.5 MG PO (17:29)
[2020-01-17] MEDS ORDERED: HYDR12.5C PO (17:58)
--- NOTE | 2020-01-17 19:17 | NUR ---
PT MEDICATED WITH PRN REGLAN FOR C/O NAUSEA. WILL MONITOR FOR EFFECTIVENESS.
--- NOTE | 2020-01-17 19:56 | NUR ---
24 HR CHART CHECK COMPLETE.
[2020-01-17 20:00] VITALS: BP 150/64
--- NOTE | 2020-01-17 20:30 | NUR ---
PT REPORTS SOME RELIEF OF NAUSEA. PRN REGLAN EFFECTIVE.
[2020-01-18] VITALS: BP 123/62
--- NOTE | 2020-01-18 03:24 | NUR ---
PT IS ASLEEP IN BED AT THIS TIME. NO S/S OF DISTRESS NOTED. RESPS EASY AND NONLABORED, 5L O2 IN USE. WILL CONTINUE TO MONITOR.
[2020-01-18 08:00] VITALS: BP 156/78
--- NOTE | 2020-01-18 09:00 | NUR ---
Director Hematology in to talk to patient. Patient states lives at home with her . There are basement steps (which she no longer uses because her family brought her washer/dryer upstairs) and 1 other step in the home. Physician: Dr. Alanna Waddell Pharmacy: [facility] Home health services: none Patient's level of ADLs: INDEPENDENT Patient has working utilities: yes DME: O2 @ 2-3L, portable O2 tanks, nebulizer, pulse ox, [employer], O2 supplier [employer] Follow-up physician's appointment after d/c: she prefers to make her own follow up appt after discharge Does patient want to access PORTAL?: no Discharge plan discussed with patient. She lives at home with her . She is independent in her ADLs and ambulation. She states her daughter does her grocery shopping for her but she would like to look at something along the line of meals on wheels. Will get her information on [employer]. She said she would also talk to her friend that has meals delivered daily. Discussed home health care services and she is unsure at this time. She states her has OV services. She does have a cleaning lady that is a family member. When medically stable she will be discharged to home. She states either Raquel or her son will provide transportation on discharge. GISEL RUSH
--- NOTE | 2020-01-18 10:30 | NUR ---
Discussed discharge planning with daughter, Raquel. She would like to see how patient does with therapy and if the patient was able to get meals.
--- NOTE | 2020-01-18 10:40 | NUR ---
PHYSICAL THERAPY Physical Therapy evaluation completed on 5th floor with full evaluation to follow. Recommend physical therapy per plan of care and SNF upon discharge. Thank you for this referral. Dashawn Falk SPT Ximena George PT
--- NOTE | 2020-01-18 10:42 | NUR ---
Occupational Therapy evaluation completed on five with full evaluation to follow. Recommend occupational therapy per plan of care and SNF upon discharge. If refused, home with SN, OT, and PT with 04/01 supervision assist. Thank you for this referral. Briseyda Willingham OTR/L
[2020-01-18 12:00] VITALS: BP 156/78
--- NOTE | 2020-01-18 14:25 | NUR ---
Number given to patient for [employer] for meals at home. Discussed therapy suggesting SNF and she refuses. Discussed home health care services and she states they really don't do anything for you because they don't have any of the equipment. She would like to see about doing outpatient therapy at the [facility]. She states she has been out there before and they use warm clothes and massages. She would like to see about getting her out to the [facility] also. She wants to discuss outpatient therapy with her first before making any decisions.
[2020-01-18 16:00] VITALS: BP 128/58
--- NOTE | 2020-01-18 17:00 | NUR ---
Patient resting quietly with no c/o discomfort. Respirations easy and regular, on O2. Vital signs stable. No overt distress. Call light in reach. Will monitor. GLENN KELLEY
[2020-01-18 20:00] VITALS: BP 157/79
[2020-01-19] VITALS: BP 153/62
[2020-01-19 06:47] LABS: BASO % 0.4 % (0.0-1.0); EOS % 0.2 % (1.0-4.0); HEMATOCRIT 35.5 % (37.0-47.0); LYMPH # 1.1 10*3/uL (1.3-4.4); LYMPH % 10.1 % (27.0-41.0); MEAN CORPUSCULAR HGB 30.9 pg (27.0-31.0); MEAN PLATELET VOLUME 10.3 fl (9.6-12.3); MONO # 0.6 10*3/uL (0.1-1.0); MONO % 5.7 % (3.0-9.0); NEUT # 8.6 10*3/uL (2.3-7.9); RED BLOOD COUNT 3.56 10*6/uL (4.10-5.10); RED CELL DISTRI WIDTH 14.6 % (0-14.5); WHITE BLOOD COUNT 10.4 10*3/uL (4.8-10.8)
[2020-01-19] MEDS ORDERED: 'CLONIDINE0.1 MG PO (06:53)
[2020-01-19] MEDS ORDERED: PREDNISONE5 MG PO ×2 (06:53→07:03)
[2020-01-19 07:10] LABS: CREATININE 1.31 mg/dL (0.55-1.02); POTASSIUM 4.8 mmol/L (3.5-5.1)
[2020-01-19 07:13] LABS: MEAN CELL VOLUME 99.7 fl (81.0-99.0); PLATELET COUNT AUTOMATED 207 10*3/uL (130-400)
--- NOTE | 2020-01-19 08:05 | NUR ---
OFFICE SWEEPER FAXED HOME HEALTH REFERRAL TO [facility].
[2020-01-19 09:00] VITALS: BP 146/70
--- NOTE | 2020-01-19 10:16 | NUR ---
PHYSICAL THERAPY PT SUPINE IN BED WITH NURSING LEAVING ROOM UPON ARRIVAL. PT IDENTIFIED BY NAME AND . PT AGREED TO ALL PHYSICAL THERAPY TREATMENT THIS VISIT. PT REPORTED " I HAVE CHEST PALPATIONS AND SOB WHEN I EXERT MYSELF." PT PERFORMES SUPINE TO SIT AND SIT TO SUPINE IN BED WITH USE OF BED RAIL AND SUPERVISION. PTS O2 WAS 94%SPO2 AND PULSE WAS 73 BPM AT SEATED. PT PERFORMED STS TO AND FROM EOB WITH SUPERVISION AND USE OF BUE FOR ASSISTANCE.PT GAIT TRAINED 6FT X1 AND SAT FOR A REST BREAK, AT THIS TIME PTS O2 WAS 77% SPO2 AND PULSE WAS 83 BPM. AT THIS TIME PT STATED "I AM EXHUSTED AND SOB." VC'S FOR BREATHING TECHNIQUES GIVEN. AFTER ONE MIN REST AND BREATHING PTS O2 WAS 90% SPO2 AND PULSE WAS 78BPM. PT THEN GAIT TRAINED ANOTHER 6FT AND SAT ON EOB WITH VC'S FOR BREATHING TECHNIQUES. PT THEN PERFORMED SUPINE IN BET WITH CALL LIGHT IN HAND AND REPORTED NO OTHER NEEDS AT THIS TIME. PT SEEN 1:1 FOR 23MINS. KAYLIN OSEI PTA
--- NOTE | 2020-01-19 10:45 | NUR ---
OT NOTE Pt was seen this A.M. 1:1 for 30 minute OT session. Upon arrival pt was supine in bed. Pt identified by name and and had no complaints at this time other than stating "I just get into trouble when I exert myself." Pt presented to therapy with continuous 3L-O2 via NC which she remained on throughout the entire session. Pt's resting SpO2 supine in bed reading 94% and heart rate 73 bpm. Pt transferred supine to sit EOB with supervision while utilizing bed rail for UE support. Upon inital rise to the EOB pt's SpO2 dropped to 88% and heart rate 77 bpm with pursed lip breathing within aprox 15 seconds SpO2 raised to 94%. While sitting EOB pt was educated on energy conservation technique for LB dressing of bringing her leg up to knee level versus forward flexing. Pt then doffed and donned B socks with good carry over of energy conservation technique with supervision. Sit to stand completed from bed level with SBA followed by functional mobility to the bathroom with SBA. There she transferred on to the standard commode with SBA and use of grab bar for UE support. Upon arrival to the standard commode (aprox 6 feet from bed) pt's SpO2 reading 77% and heart rate 83 bpm. Pt was educated on pursed lip breathing and correcting her posture, with good carry over after aprox 60 seconds pt's SpO2 reading 90% and 78 bpm. Clothing management completed with SBA and toilet hygiene completed with supervision while seated. Sit to stand completed from standard commode with SBA and use of grab bar followed by functional mobility to the EOB with SBA. After a seated rest break pt then completed BUE towel exercises with min resistance over all planes of motion for 1 X 10 to increase and restore maximum functional strength. Pt tolerated ther ex well however required constant verbal prompts to not "hold her breath" throughout. Pt transferred back into bed sit to supine with supervision where she was left with call light in hand, tray table in place, and bed alarm activated for safety. Upon end of session pt's vitals all within functional limits and nurse notified of pt's SpO2 dropping to 77%. Continue with POC as able. WESLEY Wilkinson
--- NOTE | 2020-01-19 15:00 | NUR ---
PHYSICAL THERAPY CO-SIGN I approve of the Physical Therapy notes written above. Ximena George PT
--- NOTE | 2020-01-19 15:29 | NUR ---
Discharge instructions reviewed with patient/family. Patient receptive and verbalizes understanding. Follow-up care arranged. Written instructions given to patient/family. JAIME GARCIA
--- NOTE | 2020-01-19 15:48 | NUR ---
OCCUPATIONAL THERAPY CO-SIGN I approve of the Occupational Therapy notes written above. ELIDIA LARA, OTR/L
== END 2020-01-19 15:29 | disposition home health service (06) | DRG 196 ==
LOC: ED 13:38 → 5E 15:53 → EDHOLD 15:53 → 5E 16:30
PROVIDERS: Emergency Medicine; ADMIT Internal Medicine
DX: J84.10 Pulmonary fibrosis, unspecified (principal); J80 Acute respiratory distress syndrome; N17.9 Acute kidney failure, unspecified; F33.0 Major depressive disorder, recurrent, mild; E86.0 Dehydration; E03.9 Hypothyroidism, unspecified; F41.1 Generalized anxiety disorder; M47.814 Spondylosis without myelopathy or radiculopathy, thoracic region; G89.29 Other chronic pain; I10 Essential (primary) hypertension; M47.22 Other spondylosis with radiculopathy, cervical region; Z99.81 Dependence on supplemental oxygen; R62.7 Adult failure to thrive; Z68.31 Body mass index [BMI] 31.0-31.9, adult; Z88.0 Allergy status to penicillin; Z90.711 Acquired absence of uterus with remaining cervical stump; Z87.891 Personal history of nicotine dependence; Z82.49 Family history of ischemic heart disease and other diseases of the circulatory system; Z80.8 Family history of malignant neoplasm of other organs or systems

== ENCOUNTER → 2020-02-12 | Outpatient (CLI) | payer MEDICARE ==
[~2020-02-12] MED LIST changes: +'XANAX0.5 MG PO; +HYDR12.5C PO; +REGLAN5 MG PO
--- NOTE | 2020-02-12 10:30 | NUR ---
HOME O2 ASSESSMENT: PRE BP: 148/70, HR 60, RR 18, PULSE OX 90% ON ROOM AIR AT REST. AMBULATED PATIENT APPROX. 20 FT, PULSE OX DECREASED TO 77% ON ROOM AIR WHILE AMBULATING. PLACED 2 L/M ON PATIENT, SAT >85%-ON 3 L/M SAT >92% WHILE AMBULATING. POST BP: 154/78, HR 62, RR 18, PULSE OX 94% ON 3 L/M AT REST.
== END | disposition home or self-care (01) ==
LOC: CP 10:20
PROVIDERS: ATTEND Student in an Organized Health Care Education/Training Program
DX: I27.20 Pulmonary hypertension, unspecified (principal)